=== PATIENT | male | born 1950 | race Caucasian/White ===

== ENCOUNTER → 2024-03-06 | Outpatient (CLI) | payer MEDICARE ==
[~2024-03-06] MED LIST: Lidocaine PF 2% (20 MG/ML) 5 ML VIAL ONE; Midazolam 2 MG/2 ML VIAL ONE; fentaNYL 50 MCG/ML 2 ML VIAL ONE
== END ==
LOC: MHCPAIN 11:42
DX: M47.812 Spondylosis without myelopathy or radiculopathy, cervical region (principal); M54.2 Cervicalgia; G44.86 Cervicogenic headache
CPT/HCPCS: J0665; J2250; J3010